=== PATIENT | female | born 1940 | race Caucasian/White ===

== ENCOUNTER 2022-08-06 11:52 | Emergency (ER) | payer MEDICARE, BC ==
[~2022-08-06] VITALS: Ht 167.6 cm; Wt 91.0 kg
[2022-08-06 12:04] LABS: HEMATOCRIT 31.9 % (37.0-47.0); HEMOGLOBIN 10.6 g/dl (12.0-16.0); MEAN CORPUSCULAR HGB 33.1 pG CALC (26.0-32.0); MEAN CORPUSCULAR HGB CONC 33.2 g/dL CAL (32.0-36.0); NEUT# 4.59 thou/uL (2.00-7.15); RED BLOOD COUNT 3.2 mill/uL (4.20-5.60); RED CELL DISTRI WIDTH 12.8 % (11.5-15.5)
[2022-08-06 12:11] LABS: MEAN CELL VOLUME 99.7 fL CALC (80.0-100.0)
[2022-08-06 12:54] LABS: ALBUMIN 3.7 g/dL (3.2-5.0); BILIRUBIN, TOTAL 0.6 mg/dL (0.0-1.4); CREATININE 1.4 mg/dL (0.5-1.0); POTASSIUM 4.6 mmol/l (3.5-5.1); TOTAL PROTEIN 6.1 g/dL (6.3-8.2)
[2022-08-06 13:27] VITALS: BP 134/62
== END 2022-08-06 13:59 | disposition home or self-care (01) ==
LOC: ED 11:52
PROVIDERS: Emergency Medicine
DX: R07.9 Chest pain, unspecified (principal)

== ENCOUNTER → 2022-08-06 | Day surgery (SDC) | payer MEDICARE, BC ==
[~2022-08-06] VITALS: Ht 167.6 cm; Wt 90.7 kg
[~2022-08-06] MED LIST: ALTACE10 M1 PO; ALTACE10 MG PO; AMARYL2 MG PO; BL ASPIRIN325 MG OR; CALCIUM600 M1 PO; CLOPIDOGREL75 MG PO; CRESTOR5 MG PO; D350 MCG; FISH OIL300 MG OR; FOLATE400 MCG PO; FOLIC ACID1 MG PO; IPRATROPIU0.5 MG/3 M IN; JANUMET1 TA1 PO; LASIX 40 MG TAB40 MG PO; LEVOTHYROXIN137 MCG PO; LEVOTHYROXIN150 MC1 PO; MAGNESIUM200 MG PO; NIACIN500 M3 OR; NITROGLYCER SL; OZEMPIC 8 MG/3M1 INJ; PREMARIN0.3 MG PO; ROSUVASTATIN CA10 MG PO; TRESIBA100 UNIT/M; TYLENOL PM PO; VENTOLIN HF1 IN; VITAMIN B12; VITAMIN C500 M6 PO; VITAMIN E180 MG PO; VOLTAREN1%GEL TOP
[2022-08-06 11:59] VITALS: BP 151/70
== END | disposition home or self-care (01) ==
LOC: ENDO 09:11 → ORM 09:45
PROVIDERS: ATTEND Surgery
PROC: 0DBN8ZX Excision of Sigmoid Colon, Via Natural or Artificial Opening Endoscopic, Diagnostic (ICD-10-PCS; principal; 2022-08-06)
DX: Z12.11 Encounter for screening for malignant neoplasm of colon (principal); K63.5 Polyp of colon; K57.30 Diverticulosis of large intestine without perforation or abscess without bleeding; K64.8 Other hemorrhoids; I10 Essential (primary) hypertension; E11.9 Type 2 diabetes mellitus without complications; Z86.010 Personal history of colon polyps; Z95.1 Presence of aortocoronary bypass graft; Z95.5 Presence of coronary angioplasty implant and graft; Z79.4 Long term (current) use of insulin; R07.9 Chest pain, unspecified

== ENCOUNTER 2024-06-21 10:09 | Emergency (ER) | payer MEDICARE, BC ==
[2024-06-21] VITALS (12 sets, daily range): BP systolic 113–167; BP diastolic 53–73
[~2024-06-21] VITALS: Ht 167.6 cm; Wt 87.0 kg
[~2024-06-21 10:09] MED LIST changes: +ISOSORB MONO30 MG PO; +LEVOTHYROXIN125 MC1 PO; -LEVOTHYROXIN150 MC1 PO
[2024-06-21] MEDS ORDERED: PREDNISONE5 MG PO (10:29)
[2024-06-21] MEDS ORDERED: ARAVA10 MG PO (10:30)
[2024-06-21 11:15] LABS: BASO% 0.6 % (0-3); EOS% 1.3 % (0-8); HEMATOCRIT 34.2 % (37.0-47.0); HEMOGLOBIN 10.8 g/dl (12.0-16.0); IMMATURE GRANULOCYTES 0.1 % (0.0-5.0); LYMPH% 9.8 % (15-41); MEAN CELL VOLUME 105.2 fL CALC (80.0-100.0); MEAN CORPUSCULAR HGB 33.2 pG CALC (26.0-32.0); MEAN CORPUSCULAR HGB CONC 31.6 g/dL CAL (32.0-36.0); MONO% 4.9 % (2-13); NEUT# 5.84 thou/uL (2.00-7.15); NEUT% 83.3 % (42-76); RED BLOOD COUNT 3.25 mill/uL (4.20-5.60); RED CELL DISTRI WIDTH 13.5 % (11.5-15.5)
[2024-06-21 11:36] LABS: BILIRUBIN, TOTAL 0.5 mg/dL (0.02-1.3); CREATININE 1.7 mg/dL (0.5-1.0); POTASSIUM 4.1 mmol/l (3.5-5.1); TOTAL PROTEIN 6.4 g/dL (6.3-8.2)
[2024-06-21] MEDS ORDERED: KETOROLAC TROMETHAMINE 30 MG/ML SDV IM ONE (11:50)
[2024-06-21] MEDS ORDERED: METHOCARBAMOL 500 MG/TAB PO ONE (12:45)
[2024-06-21 14:08] LABS: URINE BILIRUBIN - DIPSTICK Negative (NEGATIVE); URINE BLOOD DIPSTICK Negative (NEGATIVE); URINE GLUCOSE - DIPSTICK Negative (NEGATIVE); URINE KETONE Negative (NEGATIVE); URINE LEUK ESTERASE Trace (NEGATIVE); URINE NITRITE - DIPSTICK Negative (Negative); URINE PROTEIN - DIPSTICK Negative (NEG-TRACE); URINE SPECIFIC GRAVITY 1.015; URINE UROBILINOGEN - DIPSTICK 0.2 E.U./dL (0.2)
[2024-06-21 14:10] LABS: URINE COLOR Yellow
[2024-06-21] MEDS ORDERED: TRAMADOL HYDROC50 M1 PO (14:16)
[2024-06-21] MEDS ORDERED: FLEXERIL5 M1 PO (14:16)
== END 2024-06-21 14:43 | disposition home or self-care (01) ==
LOC: ED 10:09
PROVIDERS: Family Medicine
DX: M25.552 Pain in left hip (principal); E11.9 Type 2 diabetes mellitus without complications; I10 Essential (primary) hypertension; E03.9 Hypothyroidism, unspecified; I25.10 Atherosclerotic heart disease of native coronary artery without angina pectoris; Z79.4 Long term (current) use of insulin; Z79.85 Long-term (current) use of injectable non-insulin antidiabetic drugs; Z86.73 Personal history of transient ischemic attack (TIA), and cerebral infarction without residual deficits

== ENCOUNTER 2024-12-08 08:47 | Emergency (ER) | payer MEDICARE, BC ==
[2024-12-08] VITALS (9 sets, daily range): BP systolic 134–172; BP diastolic 58–71
[~2024-12-08] VITALS: Ht 167.6 cm; Wt 89.0 kg
[~2024-12-08 08:47] MED LIST changes: +ALLOPURINOL200 MG PO; +ARAVA10 MG PO; +CYANOCOBAL1000 MCG/M; +FISH OIL1000 M1 PO; -FISH OIL300 MG OR; +FLEXERIL5 M1 PO; +HYDROXYCHLOR200 MG PO; +IRON325 M1 PO; -LEVOTHYROXIN125 MC1 PO; +LEVOTHYROXIN150 MC1 PO; -OZEMPIC 8 MG/3M1 INJ; +OZEMPIC 8 MG/3M1 INJ SC; +PREDNISONE5 MG PO; +TRAMADOL HYDROC50 M1 PO; -TRESIBA100 UNIT/M; +TRESIBA100 UNIT/M SC; -VENTOLIN HF1 IN; +VENTOLIN HFA108 MCG IN
[2024-12-08 09:18] LABS: BASO% 0.4 % (0-3); EOS% 1.9 % (0-8); HEMATOCRIT 34.9 % (37.0-47.0); HEMOGLOBIN 11.1 g/dl (12.0-16.0); IMMATURE GRANULOCYTES 0.2 % (0.0-5.0); MEAN CELL VOLUME 104.8 fL CALC (80.0-100.0); MEAN CORPUSCULAR HGB 33.3 pG CALC (26.0-32.0); MEAN CORPUSCULAR HGB CONC 31.8 g/dL CAL (32.0-36.0); MONO% 7.1 % (2-13); NEUT# 3.45 thou/uL (2.00-7.15); NEUT% 72.4 % (42-76); RED BLOOD COUNT 3.33 mill/uL (4.20-5.60); RED CELL DISTRI WIDTH 13.7 % (11.5-15.5)
[2024-12-08 09:30] LABS: ALBUMIN 4.2 g/dL (3.2-5.0); BILIRUBIN, TOTAL 0.8 mg/dL (0.02-1.3); CREATININE 1.8 mg/dL (0.5-1.0); POTASSIUM 4.3 mmol/l (3.5-5.1); TOTAL PROTEIN 6.5 g/dL (6.3-8.2)
[2024-12-08] MEDS ORDERED: MECLIZINE HCL 25 MG/TAB PO ONE (10:30)
[2024-12-08] MEDS ORDERED: MECLIZINE25 M1 PO (11:14)
== END 2024-12-08 11:57 | disposition home or self-care (01) ==
LOC: ED 08:47
PROVIDERS: Family Medicine
DX: H81.10 Benign paroxysmal vertigo, unspecified ear (principal); M79.89 Other specified soft tissue disorders; I10 Essential (primary) hypertension; E11.9 Type 2 diabetes mellitus without complications; E03.9 Hypothyroidism, unspecified; I25.10 Atherosclerotic heart disease of native coronary artery without angina pectoris; Z79.4 Long term (current) use of insulin